=== PATIENT | female | born 1945 | race Caucasian/White ===

== ENCOUNTER → 2016-07-29 | Outpatient (CLI) | payer MEDICARE, OTHER ==
[~2016-07-29] MED LIST: CALCIUM + D 6001 TAB PO; FISH OIL500 MG PO; IBUPROFEN400 MG PO; MULTIVITAMIN1 CTB PO; NATURAL E400 IU PO; OSTEO-BI-FLEX 21 TAB PO; VITAMIN B COMPL1 T16 PO; VITAMIN C500 MG PO
== END ==
LOC: COL.RAD 13:09
DX: M25.542 Pain in joints of left hand (principal); M25.541 Pain in joints of right hand
CPT/HCPCS: J3301; Q9967

== ENCOUNTER → 2016-11-24 | Outpatient (CLI) | payer MEDICARE, OTHER ==
[2016-11-24 11:07] LABS: HIV 1/2 Antibodies Non-Reactive; HIV-1p24 Antigen Non-Reactive
== END ==
LOC: COL.LAB 09:12
PROVIDERS: Orthopaedic Surgery
DX: Z01.818 Encounter for other preprocedural examination (principal); M17.12 Unilateral primary osteoarthritis, left knee; Z96.652 Presence of left artificial knee joint

== ENCOUNTER → 2017-08-29 | Outpatient (CLI) | payer MEDICARE, OTHER | LOC: MC.RAD 10:11 | DX: Z12.31 Encounter for screening mammogram for malignant neoplasm of breast (principal) ==

== ENCOUNTER 2017-10-26 10:00 | Outpatient (RCR) | payer MEDICARE, OTHER | END 2017-10-29 11:29 | disposition home or self-care (01) | LOC: WSOT 10:00 | DX: Z47.89 Encounter for other orthopedic aftercare (principal); Z96.692 Finger-joint replacement of left hand | CPT/HCPCS: G8987-GO; G8988-GO; G8989-GO ==

== ENCOUNTER → 2019-05-21 | Outpatient (CLI) | payer MEDICARE, OTHER | LOC: MC.RAD 10:14 | DX: Z12.31 Encounter for screening mammogram for malignant neoplasm of breast (principal) ==

== ENCOUNTER → 2021-06-30 | Outpatient (CLI) | payer MEDICARE, OTHER | LOC: MC.RAD 14:27 | DX: Z12.31 Encounter for screening mammogram for malignant neoplasm of breast (principal) ==

== ENCOUNTER → 2022-08-23 | Outpatient (CLI) | payer MEDICARE, OTHER | LOC: MC.RAD 10:36 | DX: Z12.31 Encounter for screening mammogram for malignant neoplasm of breast (principal) ==